=== PATIENT | male | born 1995 | race Caucasian/White ===

== ENCOUNTER 2016-10-27 17:42 | Emergency (ER) | payer MEDICAID ==
[~2016-10-27] VITALS: Ht 177.8 cm; Wt 99.9 kg
[2016-10-27 17:44] VITALS: BP 106/54
[2016-10-27] MEDS ORDERED: ACETAMINOPHEN 325 MG TABLET PO ONE (18:30)
[2016-10-27] MEDS ORDERED: ACETAMINOPHEN 325 MG TABLET ONE (18:59)
== END 2016-10-27 20:09 | disposition home or self-care (01) ==
LOC: ED 18:18
DX: S09.90XA Unspecified injury of head, initial encounter (principal); W22.8XXA Striking against or struck by other objects, initial encounter; Y93.11 Activity, swimming; Y99.8 Other external cause status; Y92.34 Swimming pool (public) as the place of occurrence of the external cause
CPT/HCPCS: 70450

== ENCOUNTER 2019-10-12 19:35 | Emergency (ER) | payer MEDICAID ==
[~2019-10-12] VITALS: Ht 177.8 cm; Wt 108.0 kg
[2019-10-12 19:38] VITALS: BP 139/83
--- NOTE | 2019-10-12 21:17 | NUR ---
BREAK RN: PT LEFT WITHOUT GETTING DC PAPERWORK OR DC EDUCATION
== END 2019-10-12 21:18 ==
LOC: ED 21:12
DX: S39.012A Strain of muscle, fascia and tendon of lower back, initial encounter (principal); G89.11 Acute pain due to trauma; R53.1 Weakness; X58.XXXA Exposure to other specified factors, initial encounter; Y93.89 Activity, other specified; Y92.89 Other specified places as the place of occurrence of the external cause; Y99.8 Other external cause status
CPT/HCPCS: 72110; 99283